=== PATIENT | male | born 1965 | race Caucasian/White ===

== ENCOUNTER 2017-07-03 08:14 | Emergency (ER) | payer OTHER ==
[~2017-07-03] VITALS: Ht 434.3 cm; Wt 102.0 kg
[~2017-07-03 08:14] MED LIST: CLR10 PO; PANT40TA PO
[2017-07-03 08:19] VITALS: TEMP 36.8; Ht 434.3 cm; Wt 102.0 kg
[2017-07-03] MEDS ORDERED: IBUP-1459 PO (08:49)
--- NOTE | 2017-07-03 09:27 | DIAGNOSTIC IMAGING REPORT ---
L-SPINE MIN 4 VIEWS ROUTINE HISTORY: 52 years-old Male R side lumbar back pain chronic right-sided low back pain with right-sided radicular symptoms. COMPARISON: None available TECHNIQUE: 5 views of the lumbar spine FINDINGS: 5 lumbar type vertebral segments. Mild multilevel endplate spurring with minimal intervertebral disc space narrowing at L5-S1. Mild multilevel facet arthrosis, most pronounced at L4-L5 and L5-S1. There is no spondylolysis or spondylolisthesis. No acute fracture or subluxation. 5 mm calcification projects over the abdominal right upper quadrant to posttreatment the right 10th and 11th ribs. IMPRESSION: 1. Mild multilevel endplate spurring and facet arthropathy without acute fracture or subluxation. 2. Indeterminate 5 mm calcification projects over the abdominal right upper quadrant. Cholelithiasis considered. The above report was generated using voice recognition software. It may contain grammatical, syntax or spelling errors. Electronically signed by: Virgil Peraza M.D. 07/03/2017 9:26 AM Dictated Date/Time: 07/03/2017 9:24 AM
[2017-07-03] MEDS ORDERED: NAPR-1169 PO (10:37)
[2017-07-03 10:42] VITALS: BP 144/72; PULSE 72; O2SAT 95
--- NOTE | 2017-07-03 11:18 | EMERGENCY ROOM VISIT NOTE ---
ED Visit Note First contact with patient: 08:22 Chief Complaint: Right-sided back pain. History of Present Illness: Mr. Andujar is a 52-year-old white male who ambulates into the ED accompanied by his complaining of right sided lumbar back pain. Historically patient denies any previous significant injuries or surgeries to the lumbar spine. Patient reports yesterday while working around the house he started developing left-sided lumbar back pain. He reports initially it was mild and has gradually increased in intensity. He places his discomfort in the L5-S1 area right lateral to the spine. He describes his pain as an achy sensation. He rates his discomfort 4/10. His pain is nonradiating. His pain worsens with all movement of the lumbar spine. He has not identified any alleviating factors related to the pain. He has not taken any medication for pain prior to arrival at the hospital; he does report he has been using a heating pad without relief of his symptoms. 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 He denies fevers, chills, sweats, skin eruptions, skin color changes, upper respiratory tract symptoms, abdominal pain, nausea, vomiting, diarrhea, constipation, rectal bleeding, black/tarry stools, urinary symptoms, hematuria, genital paresthesias, bowel and bladder dysfunction, lower extremity weakness/ numbness/tingling. Review of Systems: As noted above in history of present illness. 8 body systems were reviewed and found to be negative as noted above. Past Medical History: Gastric reflux. Current Medications: Protonix, ibuprofen Allergies to Medications: Tetanus toxoid. Social History: Patient is currently employed; he feels safe in his home environment; he admits to tobacco and alcohol use. Physical Examination: Vital Signs: Date Time Temp Pulse Resp B/P (MAP) Pulse Ox O2 Delivery O2 Flow Rate FiO2 07/03/17 10:42 72 18 144/72 95 07/03/17 09:51 70 16 141/78 94 Room Air 07/03/17 08:19 36.8 83 16 188/109 96 GENERAL: 52-year-old male in mild distress due to pain, nontoxic-appearing, afebrile and hemodynamically stable. NEUROLOGICAL: Awake, alert and oriented to person, place and time. Answering questions appropriately and following commands. Normal gait. Good hand eye coordination. No focal motor or sensory deficits. SKIN: Warm, dry and pink. No soft tissue eruptions or trauma noted. HEENT: Atraumatic and normocephalic. BACK: No tenderness over the bony cervical, thoracic and lumbar spines. Mild tenderness in the lumbar paraspinous musculature to the right of the L5-S1 area without muscle spasm. Decreased range of motion in all movements at the waist due to pain. Negative straight leg raise test. No CVA tenderness. THORAX: Lungs sounds are clear to auscultation and equal bilaterally with symmetrical chest wall. ABDOMEN: Flat, soft and nontender. Positive bowel sounds in all quadrants. No guarding, rigidity or organomegaly. LOWER EXTREMITIES: No gross bony deformity. No shortening or malrotation. No tenderness over the hips, thighs, knees, lower leg and ankles. 5/5 muscle strength in all movements of the hips, knees and ankles against resistance. 2+ patellar and Achilles deep tendon reflexes intact and equal bilaterally. He was able to distinguish light sensations to all dermatomes of the lower legs and feet. Throughout the legs the skin was warm and pink and capillary refill was brisk. ED Course: Patient is assessed as noted above. Patient's medication list was reviewed. Laboratory Testing: Test 07/03/17 09:11 Range/Units Urine Color YELLOW Urine Appearance CLEAR CLEAR Urine pH 5.0 4.5-7.5 Urine Specific [place] 1.017 1.000-1.030 Urine Protein NEG NEG Urine Glucose (UA) NEG NEG Urine Ketones NEG NEG Urine Occult Blood NEG NEG Urine Nitrite NEG NEG Urine Bilirubin NEG NEG Urine Urobilinogen NEG NEG Urine Leukocyte Esterase NEG NEG Lumbar Spine X-Rays: Were read by myself and the radiologist showing no acute fractures or subluxations. Radiologist notes mild multilevel endplate spurring and facet arthropathy and an indeterminate 5 mm calcification projection over the right upper abdomen consistent with cholelithiasis. Patient was offered pain medication and refused. Patient was educated about today's findings and instructed on his treatment plan ; he verbalized understanding and agreement with this plan. Clinical Impression: Right sided lumbar back pain. Decision-Making: Initially my differential diagnosis I considered UTI, pyelonephritis, kidney stone, muscle strain, disc herniation, appendicitis and other causes. Disposition: Patient discharged home in stable condition accompanied by his ; prior to departure he was reassessed and subjectively reported he was feeling better and rated his discomfort 2/10. Plan: Patient was encouraged alternate acetaminophen and Naprosyn every 6 hours as needed for pain. Patient was encouraged to consider an ice bag and/or heating pad as needed 5 or 6 times a day. Patient was offered to be signed off work but refused. Patient was encouraged to follow-up with PCP for recheck if no better in 4-5 days. Patient was encouraged to return the ED for worsening pain, abdominal pain, fevers, vomiting, lower extremity weakness/numbness/tingling or any new/ concerning symptoms.
== END 2017-07-03 10:43 | disposition home or self-care (01) ==
LOC: C.EDB 08:16
DX: M54.5 Low back pain (principal); K21.9 Gastro-esophageal reflux disease without esophagitis; Z79.899 Other long term (current) drug therapy; Z88.7 Allergy status to serum and vaccine; F17.200 Nicotine dependence, unspecified, uncomplicated